=== PATIENT | female | born 1990 | race Caucasian/White ===

== ENCOUNTER 2020-04-05 16:35 | Emergency (ER) | payer OTHER ==
[~2020-04-05] VITALS: Ht 167.6 cm; Wt 118.0 kg
[2020-04-05 16:41] VITALS: BP 141/64
--- NOTE | 2020-04-05 17:14 | NUR ---
PT AWARE OF NEED FOR URINE SAMPLE. CUP AND INSTRUCTIONS PROVIDED, PT VERBALIZES UNDERSTANDING. DENIES ANY FURTHER NEEDS. CALL LIGHT IN REACH.
[2020-04-05 17:35] LABS: ALBUMIN 3.1 g/dL (3.4-5.0); ANION GAP 6 mmol/L (5-15); CALCIUM 8.4 mg/dL (8.5-10.1); CHLORIDE 109 mmol/L (98-107); CREATININE 0.48 mg/dL (0.55-1.02)
[2020-04-05 18:00] LABS: BASOPHILS # (AUTO) 0.03 x10^3/uL (0-0.1); BASOPHILS % (AUTO) 0 % (0-1); EOSINOPHILS # (AUTO) 0.07 x10^3/uL (0-0.4); EOSINOPHILS % (AUTO) 1 % (1-7); LYMPHOCYTES % (AUTO) 21 % (22-44); MD NO; MEAN CORPUSCULAR HEMOGLOBIN 27.7 pg (27.0-34.8); MEAN CORPUSCULAR VOLUME 86.6 fL (80-100); MEAN PLATELET VOLUME 10.3 fL (7.4-10.4); MONOCYTES % (AUTO) 7 % (2-9); NEUTROPHILS # (AUTO) 5.44 x10^3/uL (1.8-6.8); NEUTROPHILS % (AUTO) 71 % (42-75); PLATELET COUNT 221 x10^3/uL (130-400); RED BLOOD COUNT 4.34 x10^6/uL (3.82-5.3)
[2020-04-05 18:23] LABS: MICROSCOPIC NOT IND
== END 2020-04-05 19:12 | disposition home or self-care (01) ==
LOC: MERGE 16:35 → ED 18:45
DX: O26.891 Other specified pregnancy related conditions, first trimester (principal); R10.32 Left lower quadrant pain; R10.31 Right lower quadrant pain; Z3A.09 9 weeks gestation of pregnancy
CPT/HCPCS: 36415; 76801; 80048; 81003; 82040; 84702; 85025; 86901; 99284

== ENCOUNTER 2020-09-19 18:32 | Outpatient (CLI) | payer OTHER ==
[~2020-09-19] VITALS: Ht 167.6 cm; Wt 131.8 kg
[2020-09-19 19:14] VITALS: BP 127/80
[2020-09-19 19:30] LABS: MICROSCOPIC NOT IND
[2020-09-19 19:45] LABS: CLUE CELLS NONE SEEN (NONE SEEN); WET PREP WBCS NONE SEEN (FEW)
[2020-10-31] MEDS ORDERED: IBUP-1223 PO (17:45)
[2020-10-31] MEDS ORDERED: OXYC1TAB14 PO (17:45)
[2020-10-31] MEDS ORDERED: DOCU100C33 PO (17:45)
== END 2020-09-19 20:25 | disposition home or self-care (01) ==
LOC: LDOP 18:32
PROVIDERS: ATTEND Obstetrics & Gynecology
DX: O26.899 Other specified pregnancy related conditions, unspecified trimester (principal); R10.9 Unspecified abdominal pain
CPT/HCPCS: 59025; 81003; 87086; 87210; 87808